=== PATIENT | male | born 1985 | race Caucasian/White ===

== ENCOUNTER 2022-01-12 10:52 | Outpatient (CLI) | payer BC, SELFPAY ==
--- NOTE | ~2022-01-12 | XR_ITS ---
EXAMINATION: XR abdomen obstructive series DATE: 01/12/2022 11:08 INDICATION: Left-sided flank pain TECHNIQUE: Supine and upright views of the abdomen. FINDINGS: The visualized lung parenchyma is normal.. There is a nonobstructive bowel gas pattern. Gas and stool are seen throughout the colon to the level of the rectum. There is no free air. Moderate colonic fe sherie loading. There are pelvic calcifications, likely phleboliths. IMPRESSION: 1. No acute abdominal abnormality. Reviewed, dictated and finalized at location B.
== END 2022-01-12 10:53 | disposition home or self-care (01) ==
LOC: ANHBWCIMG 10:54
PROVIDERS: PCP Family Medicine; Visit Provider Family Medicine
DX: R10.9 Unspecified abdominal pain (principal)
CPT/HCPCS: 74019

== ENCOUNTER 2022-01-23 10:22 | Outpatient (CLI) | payer BC, SELFPAY ==
[2022-01-23 18:49] LABS: Basophils Percent Auto 0.6 % (0.2-1.2); Eosinophils Absolute Auto 0.6 K/mm3 (0-0.3); Eosinophils Percent Auto 8.1 % (0-4.4); Hematocrit 52.6 % (42.0-52.0); Hemoglobin 17.4 g/dL (14.0-18.0); Immature Granulocyte Absolute 0.03 K/mm3 (0.00-0.031); Immature Granulocyte Percent A 0.4 % (0-0.5); Lymphocytes Absolute Auto 2.01 K/mm3 (0.9-3.2); Lymphocytes Percent Auto 28.4 % (18.3-44.2); Mean Corpuscular HGB Conc 33.1 g/dl (32-36); Mean Corpuscular Hemoglobin 29.5 pg (26-34); Mean Corpuscular Volume 89.2 fl (80-100); Mean Platelet Volume 10.9 fl (7.4-10.4); Monocytes Absolute Auto 0.7 K/mm3 (0.1-0.6); Monocytes Percent Auto 10.5 % (2.6-8.5); Neutrophils Absolute Auto 3.7 K/mm3 (1.3-6.7); Platelet Count Result 346 k/mm3 (150-375); Red Cell Distribution Width 13.5 % (11.5-14.5); White Blood Count 7.1 K/mm3 (4.5-10.0)
[2022-01-23 19:21] LABS: Alanine Aminotransferase 30 U/L (6-50); Albumin Level 4.9 g/dL (3.5-5.1); Alkaline Phosphatase 132 U/L (38-126); Anion Gap 14 mmol/L (8-16); Aspartate Amino Transferase 104 U/L (17-59); Bilirubin,Total 1.1 mg/dL (0.2-1.3); Blood Urea Nitrogen 12 mg/dL (9-20); Calcium 9.1 mg/dL (8.4-10.2); Carbon Dioxide 26 mmol/L (22-30); Chloride 100 mmol/L (98-107); Cholesterol 183 mg/dL (0-200); Estimated Glomerular Filt Rate > 60; Glucose 79 mg/dL (65-110); HDL Direct 28 mg/dL; Potassium 4.1 mmol/L (3.4-5.0); Sodium 140 mmol/L (137-145); Triglycerides 97 mg/dL (<150)
[2022-01-23 19:33] LABS: LDL Cholesterol Direct 126 mg/dL
[2022-01-23 19:54] LABS: Prostate Specific Antigen 0.8 ng/mL (< OR = 4.0)
[2022-01-29 08:49] LABS: Testosterone Free 811.2 pg/mL (35.0-155.0); Testosterone Total 2695 ng/dL (250-1100)
== END 2022-01-23 10:23 | disposition home or self-care (01) ==
LOC: ANHBWCLAB 10:23
PROVIDERS: PCP Family Medicine; Visit Provider Family Medicine
DX: Z00.00 Encounter for general adult medical examination without abnormal findings (principal); R10.9 Unspecified abdominal pain
CPT/HCPCS: 36415; 80053; 80061; 84153; 84402; 84403; 85025; G0103

== ENCOUNTER 2022-04-20 07:04 | Outpatient (CLI) | payer BC, SELFPAY ==
[2022-04-20 19:49] LABS: Basophils Percent Auto 0.7 % (0.2-1.2); Eosinophils Absolute Auto 0.2 K/mm3 (0-0.3); Eosinophils Percent Auto 5.3 % (0-4.4); Hematocrit 51.6 % (42.0-52.0); Hemoglobin 16.9 g/dL (14.0-18.0); Immature Granulocyte Absolute 0.03 K/mm3 (0.00-0.031); Immature Granulocyte Percent A 0.7 % (0-0.5); Lymphocytes Absolute Auto 1.43 K/mm3 (0.9-3.2); Lymphocytes Percent Auto 33.1 % (18.3-44.2); Mean Corpuscular HGB Conc 32.8 g/dl (32-36); Mean Corpuscular Hemoglobin 28.9 pg (26-34); Mean Corpuscular Volume 88.4 fl (80-100); Mean Platelet Volume 11.7 fl (7.4-10.4); Monocytes Absolute Auto 0.5 K/mm3 (0.1-0.6); Monocytes Percent Auto 12.5 % (2.6-8.5); Neutrophils Absolute Auto 2.1 K/mm3 (1.3-6.7); Neutrophils Percent Auto 47.7 % (45.5-73.1); Platelet Count Result 251 k/mm3 (150-375); Red Blood Count 5.84 M/mm3 (4.6-6.20); Red Cell Distribution Width 12.9 % (11.5-14.5); White Blood Count 4.3 K/mm3 (4.5-10.0)
[2022-04-25 14:43] LABS: Testosterone Free 83.4 pg/mL (35.0-155.0); Testosterone Total 388 ng/dL (250-1100)
== END 2022-04-20 07:05 | disposition home or self-care (01) ==
LOC: ANHBWCLAB 07:05
PROVIDERS: PCP Family Medicine; Visit Provider Family Medicine
DX: R79.89 Other specified abnormal findings of blood chemistry (principal)
CPT/HCPCS: 36415; 84402; 84403; 85025

== ENCOUNTER 2022-05-24 14:43 | Outpatient (CLI) | payer BC, SELFPAY | END 2022-05-24 14:44 | disposition home or self-care (01) | LOC: ANHBWCLAB 14:44 | PROVIDERS: PCP Family Medicine; Visit Provider Nurse Practitioner Family | DX: R10.9 Unspecified abdominal pain (principal); R19.4 Change in bowel habit; R19.7 Diarrhea, unspecified | CPT/HCPCS: 36415; 83516; 84443; 86255; 86364 ==

== ENCOUNTER 2022-06-26 15:07 | Outpatient (CLI) | payer BC, SELFPAY ==
[2022-06-26 22:58] LABS: Toxigenic C. Diff NEGATIVE (NEGATIVE)
== END 2022-06-26 15:08 | disposition home or self-care (01) ==
LOC: ANHBWCLAB 15:08
PROVIDERS: PCP Family Medicine; Visit Provider Nurse Practitioner Family
DX: R10.9 Unspecified abdominal pain (principal); R19.4 Change in bowel habit; R19.7 Diarrhea, unspecified
CPT/HCPCS: 87045; 87177; 87209; 87427; 87493

== ENCOUNTER 2022-06-27 01:13 | Day surgery (SDC) | payer BC, SELFPAY ==
[2022-06-12 14:00] VITALS: BMI 33.2
[2022-06-27 09:01] VITALS: BP 142/84; PULSE 72; RESP 18; TEMP 36.4; O2SAT 100
[2022-06-27] MEDS: LACTATED RINGERS 1,000 ML 150 ML IV CONT (09:14)
--- NOTE | 2022-06-27 09:15 | P.PNAN_ITS ---
Anes - Initial Pre Proc Eval Procedure: Operation Date: 06/27/22 10:30 Proposed Procedures p Colonoscopy - Trae Aguiar MD Date/Time: 06/27/22 09:15 Surgeon: Trae Aguiar MD Pre Op Diagnosis: fam hx colon ca,diarrhea,change in bowel habits, Patient Data Age: 36 Gender: M Height: 1.78 m Weight: 100.7 kg Last Vital Signs Temp 36.4 C L 06/27/22 09:01 Pulse 72 06/27/22 09:01 Resp 18 06/27/22 09:01 BP 142/84 H 06/27/22 09:01 Pulse Ox 100 06/27/22 09:01 O2 Del Method Room Air 06/27/22 09:01 Allergies Allergy/AdvReac Type Severity Reaction Status Date / Time No Known Allergies Allergy Mild Verified 06/27/22 09:00 Home Medications Medication Instructions Recorded Confirmed Type testosterone cypionate 200 mg/mL 150 mg (0.75 mL) IM WEEKLY #10 mL 04/28/22 06/12/22 Rx intramuscular oil syringe with needle 3 mL 23 x 1 #26 ea 05/09/22 06/12/22 Rx Patient hx anesthesia problems: none Family hx anesthesia problems: none Results Review: All pre-operative results and documents have been reviewed as part of the pre- operative evaluation. FORMERLY [facility], [facility] Past Medical History Medical History (Updated 05/24/22 @ 14:37 by YFN [email or web address]) Bright red blood per rectum Change in bowel habits Frequent loose stools Rotator cuff arthropathy of right shoulder Family History Family History Mother Cancer Grandparent Diabetes mellitus Heart disease Social History Social History Smoking packs per day: 1 Smoking cigarettes per day: 20.0 Years smoked: 10 Smoking pack-years: 10.00 Smoking status: Never smoker Tobacco type: e-cigarettes/vaping Additional smoking assessment comments: quit 2 years ago Alcohol intake: never Substance use: never Substance use type: does not use Lack of Transportation: No Lack of Food: Never True Current Housing: I Have Housing Concerned About Future Housing: No Difficulty Paying Gas/Electric Bills: No Difficulty Paying for Meds: No Currently Unemployed: No Education: High School Diploma/GED Difficulty w/ Childcare or Family Care: No Living arrangements: with family Occupation/Education: occupation Additional occupation/education comments: [employer] Spiritual care concerns: No Anes - Eval Final PreProcedure Day of Procedure 06/27/22 09:15 Patient weight: overweight Heart: regular rate and rhythm Lungs: clear to auscultation and normal air movement Airway: Mallampati scale class II Neurological: alert and oriented Last oral intake: >/= 8 hours ASA classification: II Emergent: no Anesthetic plan: proceed Anesthesia type and monitoring: general GIVS Results Review: All pre-operative results and documents have been reviewed as part of the pre- operative evaluation. Informed Consent: The patient's anesthetic plan and its attendant risks and benefits were discussed with the patient/family/POA. Questions were solicited and answers provided to the satisfaction of the patient/family/POA.
--- NOTE | 2022-06-27 09:43 | PM.HPGS ---
History of Present Illness History of Present Illness Consent: Risks, benefits, and alternatives have been discussed and questions answered. Patient agrees to proceed with procedure. Chief complaint: fam hx colon ca,diarrhea,change in bowel habits, Narrative: Dirk Momin is a 36 year old male Presents for colonoscopy. He reports over last 6 months have had intermittent sharp left upper quadrant abdominal pain. Not related to bowel habits nor diet nor activity. He reports frequent soft stools up to 5 add 6 a day. He notes occasional bright red blood per rectum with wiping. Very infrequently. Somewhat concerned because of family history is significant for grandfather having colon cancer. He is referred for colonoscopy today. Review of Systems Review of Systems: Review of systems noncontributory. [facility] Past Medical History Medical History (Updated 06/27/22 @ 09:45 by Trae Aguiar MD) Bright red blood per rectum Change in bowel habits Frequent loose stools Rotator cuff arthropathy of right shoulder Family History Family History Mother Cancer Grandparent Diabetes mellitus Heart disease Social History Social History Smoking packs per day: 1 Smoking cigarettes per day: 20.0 Years smoked: 10 Smoking pack-years: 10.00 Smoking status: Never smoker Tobacco type: e-cigarettes/vaping Additional smoking assessment comments: quit 2 years ago Alcohol intake: never Substance use: never Substance use type: does not use Lack of Transportation: No Lack of Food: Never True Current Housing: I Have Housing Concerned About Future Housing: No Difficulty Paying Gas/Electric Bills: No Difficulty Paying for Meds: No Currently Unemployed: No Education: High School Diploma/GED Difficulty w/ Childcare or Family Care: No Living arrangements: with family Occupation/Education: occupation Additional occupation/education comments: [employer] Spiritual care concerns: No Meds Home Medications and Allergies Home Medications Medication Instructions Recorded Confirmed Type testosterone cypionate 200 mg/mL 150 mg (0.75 mL) IM WEEKLY #10 mL 04/28/22 06/12/22 Rx intramuscular oil syringe with needle 3 mL 23 x 1 #26 ea 05/09/22 06/12/22 Rx Allergies Allergy/AdvReac Type Severity Reaction Status Date / Time No Known Allergies Allergy Mild Verified 06/27/22 09:00 Vital Signs Vital Signs - 24 hr 06/27/22 09:01 Temperature 97.5 F L Pulse Rate 72 Respiratory Rate 18 Blood Pressure 142/84 H Pulse Oximetry 100 Oxygen Delivery Room Air Exam Narrative: Physical exam reveals patient to be alert. Vital signs stable. HEENT exam is unremarkable. Patient is anicteric. Lungs are clear to auscultation and percussion. Heart is without murmur or extra sounds. Abdomen bowel sounds present soft nontender with no organomegaly. Digital external rectal exam is normal. Assessment and Plan Assessment and plan (1) Frequent loose stools: Code(s): R19.7 - Diarrhea, unspecified Status: Acute Assessment and Plan: Colonoscopy will be performed today because of frequent stools with occasional rectal bleeding left-sided sharp abdominal pains. Further recommendations may be given after endoscopy. (2) Bright red blood per rectum: Code(s): K62.5 - Hemorrhage of anus and rectum Status: Acute (3) Change in bowel habits: Code(s): R19.4 - Change in bowel habit Status: Acute (4) Abdominal pain: Code(s): R10.9 - Unspecified abdominal pain Status: Acute
[2022-06-27 10:09] VITALS: BP 83/45; PULSE 64; RESP 18; O2SAT 97
[2022-06-27 10:19] VITALS: BP 92/56; PULSE 63; RESP 20; O2SAT 97
[2022-06-27 10:29] VITALS: BP 125/76; PULSE 62; RESP 20; O2SAT 99
== END 2022-06-27 10:38 | disposition home or self-care (01) ==
PROVIDERS: PCP Family Medicine; Visit Provider Internal Medicine Gastroenterology
PROC: 0DJD8ZZ Inspection of Lower Intestinal Tract, Via Natural or Artificial Opening Endoscopic (ICD-10-PCS; CPT 45378; principal; 2022-06-27 10:30)
DX: R19.4 Change in bowel habit (principal); K64.8 Other hemorrhoids; Z87.891 Personal history of nicotine dependence
CPT/HCPCS: 45380; 88305; J2704; J7120

== ENCOUNTER 2022-06-28 07:03 | Outpatient (CLI) | payer BC, SELFPAY ==
[2022-07-02 15:32] LABS: Testosterone Free 366.4 pg/mL (35.0-155.0); Testosterone Total 1304 ng/dL (250-1100)
[2022-07-04 17:59] LABS: Gliadin AB, IgG <1.0 U/mL (<15.0); TTG IGA AB <1.0 U/mL (<15.0)
== END 2022-06-28 07:04 | disposition home or self-care (01) ==
LOC: ANHBWCLAB 07:06
PROVIDERS: PCP Family Medicine; Visit Provider Nurse Practitioner Family
DX: R79.89 Other specified abnormal findings of blood chemistry (principal)
CPT/HCPCS: 36415; 84402; 84403; 86255; 86364

== ENCOUNTER 2022-08-09 07:04 | Outpatient (CLI) | payer BC, SELFPAY ==
[2022-08-18 18:10] LABS: Testosterone Free 216.7 pg/mL (35.0-155.0); Testosterone Total 763 ng/dL (250-1100)
== END 2022-08-09 07:05 | disposition home or self-care (01) ==
PROVIDERS: PCP Family Medicine; Visit Provider Family Medicine
DX: R79.89 Other specified abnormal findings of blood chemistry (principal)
CPT/HCPCS: 36415; 84402; 84403

== ENCOUNTER 2022-08-31 07:07 | Outpatient (CLI) | payer BC, SELFPAY ==
[2022-09-11 02:49] LABS: Estradiol, Ultrasensitive 57 pg/mL (< OR = 29)
== END 2022-08-31 07:08 | disposition home or self-care (01) ==
PROVIDERS: PCP Family Medicine; Visit Provider Family Medicine
DX: R79.89 Other specified abnormal findings of blood chemistry (principal)
CPT/HCPCS: 36415; 82670

== ENCOUNTER 2022-11-09 07:05 | Outpatient (CLI) | payer BC, SELFPAY ==
[2022-11-09 18:25] LABS: Hemoglobin 17.5 g/dL (14.0-18.0); Mean Corpuscular HGB Conc 32.4 g/dl (32-36); Mean Corpuscular Hemoglobin 29.5 pg (26-34); Mean Corpuscular Volume 91.1 fl (80-100); Mean Platelet Volume 11.2 fl (7.4-10.4); Platelet Count Result 270 k/mm3 (150-375); Red Blood Count 5.93 M/mm3 (4.6-6.20); Red Cell Distribution Width 13.4 % (11.5-14.5); White Blood Count 4.7 K/mm3 (4.5-10.0)
[2022-11-09 20:23] LABS: Prostate Specific Antigen 0.8 ng/mL (< OR = 4.0)
[2022-11-13 17:35] LABS: Testosterone Free 165.1 pg/mL (35.0-155.0); Testosterone Total 786 ng/dL (250-1100)
[2022-11-17 21:47] LABS: Estradiol, Ultrasensitive 12 pg/mL (< OR = 29)
== END 2022-11-09 07:06 | disposition home or self-care (01) ==
PROVIDERS: PCP Family Medicine; Visit Provider Family Medicine
DX: R03.0 Elevated blood-pressure reading, without diagnosis of hypertension (principal); R79.89 Other specified abnormal findings of blood chemistry
CPT/HCPCS: 36415; 82670; 84153; 84402; 84403; 85027; G0103

== ENCOUNTER 2023-03-21 07:04 | Outpatient (CLI) | payer BC, SELFPAY ==
[2023-03-21 19:46] LABS: Hematocrit 54.4 % (42.0-52.0); Hemoglobin 18.1 g/dL (14.0-18.0); Mean Corpuscular HGB Conc 33.3 g/dl (32-36); Mean Corpuscular Hemoglobin 29.4 pg (26-34); Mean Corpuscular Volume 88.3 fl (80-100); Mean Platelet Volume 11.1 fl (7.4-10.4); Platelet Count Result 265 k/mm3 (150-375); Red Blood Count 6.16 M/mm3 (4.6-6.20); Red Cell Distribution Width 13.3 % (11.5-14.5); White Blood Count 5.7 K/mm3 (4.5-10.0)
[2023-03-27 13:21] LABS: Testosterone Free 352.7 pg/mL (35.0-155.0); Testosterone Total 1326 ng/dL (250-1100)
== END 2023-03-21 07:05 | disposition home or self-care (01) ==
LOC: ANHBWCLAB 07:05
PROVIDERS: PCP Family Medicine; Visit Provider Family Medicine
DX: D75.1 Secondary polycythemia (principal); R79.89 Other specified abnormal findings of blood chemistry
CPT/HCPCS: 36415; 84402; 84403; 85027

== ENCOUNTER 2023-04-11 07:11 | Outpatient (CLI) | payer BC, SELFPAY ==
[2023-04-11 18:53] LABS: CRP < 0.5 mg/dL (<1.0)
[2023-04-11 19:52] LABS: Erythrocyte Sedimentation Rate 1 mm/hr (0-20)
[2023-04-14 09:40] LABS: ANA Cascade Screen Positive (Negative)
[2023-04-14 10:50] LABS: Chromatin (Nucleosomal) Ab <1.0; Chromatin Antibody Charge YES; DNA (ds) Antibody Charge YES; RNP Antibody 2.3; RNP Antibody Charge YES; Sm Antibody <1.0; Sm Antibody Charge YES; Sm/RNP Antibody <1.0; Sm/RNP Antibody Charge YES
== END 2023-04-11 07:12 | disposition home or self-care (01) ==
LOC: ANHBWCLAB 07:12
PROVIDERS: PCP Family Medicine; Visit Provider Family Medicine
DX: R53.83 Other fatigue (principal); R21 Rash and other nonspecific skin eruption
CPT/HCPCS: 36415; 85652; 86038; 86140; 86225; 86235; 86364

== ENCOUNTER 2023-07-12 07:05 | Outpatient (CLI) | payer BC, SELFPAY ==
[2023-07-12 19:29] LABS: Hematocrit 53.4 % (42.0-52.0); Hemoglobin 17.6 g/dL (14.0-18.0); Mean Corpuscular Hemoglobin 29.7 pg (26-34); Mean Corpuscular Volume 90.1 fl (80-100); Mean Platelet Volume 11.4 fl (7.4-10.4); Platelet Count Result 251 k/mm3 (150-375); Red Blood Count 5.93 M/mm3 (4.6-6.20); Red Cell Distribution Width 13.2 % (11.5-14.5); White Blood Count 5.2 K/mm3 (4.5-10.0)
[2023-07-12 22:43] LABS: Alanine Aminotransferase 36 U/L (6-50); Albumin Level 4.4 g/dL (3.5-5.1); Alkaline Phosphatase 90 U/L (38-126); Anion Gap 7 mmol/L (4-12); Aspartate Amino Transferase 106 U/L (17-59); Bilirubin,Total 0.9 mg/dL (0.2-1.3); Blood Urea Nitrogen 13 mg/dL (9-20); Calcium 9.3 mg/dL (8.4-10.2); Carbon Dioxide 25 mmol/L (22-30); Chloride 106 mmol/L (98-107); Cholesterol 176 mg/dL (0-200); Estimated Glomerular Filt Rate > 60; Glucose 86 mg/dL (65-110); HDL Direct 30 mg/dL; Potassium 4.3 mmol/L (3.4-5.0); Sodium 138 mmol/L (137-145); Triglycerides 90 mg/dL (<150)
[2023-07-12 22:53] LABS: LDL Cholesterol Direct 124 mg/dL
[2023-07-12 23:10] LABS: Prostate Specific Antigen 0.8 ng/mL (< OR = 4.0)
[2023-07-18 16:44] LABS: Testosterone Free 302.5 pg/mL (35.0-155.0); Testosterone Total 1082 ng/dL (250-1100)
[2023-07-25 19:48] LABS: Estradiol, Ultrasensitive 54 pg/mL (< OR = 29)
== END 2023-07-12 07:06 | disposition home or self-care (01) ==
LOC: ANHBWCLAB 07:07
PROVIDERS: PCP Nurse Practitioner Adult Health; Visit Provider Family Medicine
DX: Z00.00 Encounter for general adult medical examination without abnormal findings (principal); D75.1 Secondary polycythemia; R79.89 Other specified abnormal findings of blood chemistry; Z87.898 Personal history of other specified conditions
CPT/HCPCS: 36415; 80053; 80061; 82670; 84153; 84402; 84403; 85027; G0103

== ENCOUNTER 2023-09-13 06:57 | Outpatient (CLI) | payer BC, SELFPAY ==
[2023-09-18 12:34] LABS: Testosterone Free 193.3 pg/mL (35.0-155.0); Testosterone Total 917 ng/dL (250-1100)
[2023-09-23 01:03] LABS: Estradiol, Ultrasensitive 38 pg/mL (< OR = 29)
== END 2023-09-13 06:58 | disposition home or self-care (01) ==
LOC: ANHBWCLAB 06:58
PROVIDERS: PCP Nurse Practitioner Adult Health; Visit Provider Nurse Practitioner Adult Health
DX: R79.89 Other specified abnormal findings of blood chemistry (principal)
CPT/HCPCS: 36415; 82670; 84402; 84403

== ENCOUNTER 2024-02-27 11:55 | Outpatient (CLI) | payer BC, SELFPAY ==
[2024-02-27 18:31] LABS: Basophils Absolute Auto 0.1 K/mm3 (0.0-0.1); Basophils Percent Auto 0.7 % (0.2-1.2); Eosinophils Absolute Auto 0.5 K/mm3 (0-0.3); Eosinophils Percent Auto 6.6 % (0-4.4); Hematocrit 52.5 % (42.0-52.0); Hemoglobin 17.9 g/dL (14.0-18.0); Immature Granulocyte Absolute 0.05 K/mm3 (0.00-0.031); Immature Granulocyte Percent A 0.7 % (0-0.5); Lymphocytes Absolute Auto 1.31 K/mm3 (0.9-3.2); Lymphocytes Percent Auto 17.4 % (18.3-44.2); Mean Corpuscular HGB Conc 34.1 g/dl (32-36); Mean Corpuscular Hemoglobin 29.9 pg (26-34); Mean Corpuscular Volume 87.6 fl (80-100); Mean Platelet Volume 10.9 fl (7.4-10.4); Monocytes Absolute Auto 0.7 K/mm3 (0.1-0.6); Neutrophils Absolute Auto 4.9 K/mm3 (1.3-6.7); Neutrophils Percent Auto 65.6 % (45.5-73.1); Platelet Count Result 294 k/mm3 (150-375); Red Blood Count 5.99 M/mm3 (4.6-6.20); White Blood Count 7.5 K/mm3 (4.5-10.0)
[2024-02-27 18:44] LABS: D Dimer < 0.27 ug/mL (<0.48)
== END 2024-02-27 11:56 | disposition home or self-care (01) ==
PROVIDERS: PCP Nurse Practitioner Adult Health; Visit Provider Nurse Practitioner Adult Health
DX: R06.00 Dyspnea, unspecified (principal); R05.9 Cough, unspecified
CPT/HCPCS: 36415; 85025; 85380

== ENCOUNTER 2024-03-05 08:07 | Outpatient (CLI) | payer BC, SELFPAY ==
--- NOTE | ~2024-03-05 | CT_ITS ---
CT diagnostic chest wo [facility] Ordering provider: Vita Virk APRN History: 38 years Male with . Chronic cough . Comparison: None. Technique: CT chest without IV contrast. Radiation reduction technique utilized.The dose-length product was 465.79 mGy-cm. FINDINGS: VISUALIZED THORACIC INLET: Normal. MEDIASTINUM: Aorta/coronary arteries: The thoracic aorta is normal. Ascending aorta measures 3.6 cm. Heart/other: The heart is not enlarged. Lymph nodes: No mediastinal or hilar adenopathy. LUNGS: No pulmonary nodules or masses. No infiltrates or effusions. No pneumothorax. Dependent atelec tatic changes. VISUALIZED UPPER ABDOMEN: the visualized upper abdomen is normal. MUSCULOSKELETAL: Soft tissues: The superficial soft tissues are normal. Bones: Normal spine. IMPRESSION: 1. No acute cardiopulmonary pathology. Reviewed, dictated and finalized at location A. [employer]
== END 2024-03-05 08:08 | disposition home or self-care (01) ==
LOC: GOSHIMG 08:07
PROVIDERS: PCP Nurse Practitioner Adult Health; Visit Provider Nurse Practitioner Adult Health
DX: R05.3 Chronic cough (principal)
CPT/HCPCS: 71250